=== PATIENT | male | born 1960 | race Caucasian/White ===

== ENCOUNTER 2016-07-12 12:02 | Emergency (ER) | payer OTHER ==
[~2016-07-12] VITALS: Ht 175.3 cm; Wt 109.6 kg
[2016-07-12] MEDS ORDERED: GLIP5 PO (12:16)
[2016-07-12] MEDS ORDERED: RANI150T7 PO (12:16)
[2016-07-12] MEDS ORDERED: LEVAHFA IH (12:16)
[2016-07-12] MEDS ORDERED: PREG25 PO (12:16)
[2016-07-12] MEDS ORDERED: HYDR25TA PO (12:16)
[2016-07-12] MEDS ORDERED: METF500T4 PO (12:16)
[2016-07-12] MEDS ORDERED: PRAV10TA39 PO (12:16)
[2016-07-12] MEDS ORDERED: LISI-660 PO (12:16)
[2016-07-12] MEDS ORDERED: DILT60SR PO (12:16)
[2016-07-12] MEDS ORDERED: CLOP75 PO (12:16)
[2016-07-12] MEDS ORDERED: ACET-2247 PO (12:16)
[2016-07-12] MEDS ORDERED: OLAN5TAB2 PO (12:16)
[2016-07-12] MEDS ORDERED: SELE120S2 TP (12:16)
[2016-07-12] MEDS ORDERED: NITRS4 TL (12:16)
[2016-07-12] MEDS ORDERED: TRI405I IM (12:16)
[2016-07-12] MEDS ORDERED: ASA3 PO (12:16)
[2016-07-12] MEDS ORDERED: HYDR-4031 PO (12:16)
[2016-07-12] MEDS ORDERED: ASPI81 PO (12:16)
[2016-07-12] MEDS ORDERED: INSREG SQ (12:16)
[2016-07-12] MEDS ORDERED: KETOROLAC TROMETHAMINE 30 MG/ML VIAL IVP ONE (12:45)
[2016-07-12 12:46] LABS: BASOPHILS % (AUTO) 0.5 % (0.0-2.0); EOSINOPHILS % (AUTO) 2.1 % (1.0-6.0); HEMATOCRIT 43.8 % (41-53); HEMOGLOBIN 14.4 g/dL (13.5-17.5); LYMPHOCYTES # (AUTO) 2.4 K/uL (1.0-4.8); LYMPHOCYTES % (AUTO) 35.5 % (22.0-44.0); MEAN CORPUSCULAR HEMOGLOBIN 30.1 pg (26.0-34.0); MEAN CORPUSCULAR HGB CONC 32.9 G/dL (31.0-37.0); MEAN CORPUSCULAR VOLUME 92 fL (80-100); MONOCYTES # (AUTO) 0.7 K/uL (0.1-1.0); MONOCYTES % (AUTO) 11.1 % (2.0-9.0); NEUTROPHILS # (AUTO) 3.4 K/uL (1.8-7.7); NEUTROPHILS % (AUTO) 50.8 % (40.0-70.0); PLATELET COUNT (AUTO) 189 K/uL (150-450); RED BLOOD CELL COUNT(AUTO) 4.78 MIL/uL (4.50-5.90); RED CELL DISTRIBUTION WIDTH 13.4 % (11.5-14.5); WHITE BLOOD COUNT (AUTO) 6.7 K/uL (4.5-11.0)
[2016-07-12 13:01] LABS: ANION GAP 6 mmol/L (8-16); CALCIUM, TOTAL 8.4 mg/dL (8.8-10.5); CARBON DIOXIDE 28 mmol/L (22-29); CHLORIDE 103 mmol/L (98-107); CREATININE 0.84 mg/dL (0.60-1.30); GLOMERULAR FILTR. RATE CALC > 60 mL/min (>60); POTASSIUM 4.4 mmol/L (3.5-5.1); SODIUM SERUM 137 mmol/L (136-145); UREA NITROGEN, BLOOD 16 mg/dL (7-18)
[2016-07-12 13:12] LABS: B-TYPE NATRIURETIC PEPTIDE < 5 pg/mL (0-100)
[2016-07-12 13:23] LABS: ALANINE AMINOTRANSFERASE 49 U/L (12-78); ALBUMIN 3.5 g/dL (3.4-5.0); ASPARTATE AMINOTRANSFERASE 19 U/L (15-37); BILIRUBIN,TOTAL 0.3 mg/dL (0.1-1.0); CREATINE KINASE MB 1.7 ng/mL (0-5); CREATINE KINASE, TOTAL 106 U/L (39-308); TOTAL PROTEIN, SERUM 6.5 g/dL (6.4-8.2)
[2016-07-12 14:06] VITALS: BP 147/75
== END 2016-07-12 14:12 | disposition home or self-care (01) ==
LOC: EEVIPCON 12:02 → EMS 12:07
DX: R07.81 Pleurodynia (principal); J44.9 Chronic obstructive pulmonary disease, unspecified; E11.9 Type 2 diabetes mellitus without complications; I10 Essential (primary) hypertension; Z79.4 Long term (current) use of insulin; Z88.5 Allergy status to narcotic agent; Z79.82 Long term (current) use of aspirin
CPT/HCPCS: 36415; 71010; 80053; 82550; 82553; 82962; 83880; 84484; 85025; 85379; 93005; 96374; 99285; J1885